=== PATIENT | female | born 1945 | race Caucasian/White ===

== ENCOUNTER → 2016-08-28 12:10 | Emergency (ER) | payer MEDICARE, OTHER ==
[~2016-08-28 12:10] MED LIST: ValACYclovir (*) 1 GM TAB PO ONE; predniSONE TAB* 20 MG PO ONE
[2016-08-28 13:31] LABS: Hematocrit 41 % (35-47); Hemoglobin 13.8 g/dl (12.0-16.0); Mean Corpuscular HGB Conc 34 g/dl (31-36); Mean Corpuscular Hemoglobin 32 pg (27-31); Mean Corpuscular Volume 94 fL (80-97); Mean Platelet Volume 8 um3 (7.4-10.4); Red Blood Count 4.35 10^6/ul (4.0-5.4); Red Cell Distribution Width 13 % (10.5-15); White Blood Count 12.7 10^3/ul (3.5-10.8)
--- NOTE | 2016-08-28 13:37 | RAD ---
HISTORY: Right facial weakness COMPARISONS: None TECHNIQUE: Multiple contiguous axial CT scans were obtained of the head without intravenous contrast. FINDINGS: HEMORRHAGE/INFARCT: There is no hemorrhage or acute infarct. MASSES/SHIFT: There is no mass or shift. EXTRA-AXIAL SPACES: There are no extra-axial fluid collections. SULCI AND VENTRICLES: The sulci and ventricles are normal in size and position for the patient's stated age. CEREBRUM: There is hypoattenuation of the periventricular and subcortical white matter. BRAINSTEM: There are no focal parenchymal abnormalities. CEREBELLUM: There are no focal parenchymal abnormalities. VESSELS: The vessels are grossly normal. PARANASAL SINUSES: The paranasal sinuses are clear. ORBITS: The orbits are unremarkable. BONES AND SOFT TISSUE: No bone or soft tissue abnormalities are noted. OTHER: None IMPRESSION: 1. NO ACUTE INTRACRANIAL PATHOLOGY. 2. PERIVENTRICULAR AND SUBCORTICAL HYPOATTENUATION, NONSPECIFIC BUT SUGGESTIVE OF CHRONIC SMALL VESSEL ISCHEMIA
[2016-08-28 13:41] LABS: Albumin 4.2 g/dL (3.2-5.2); BUN/Creatinine Ratio 21.7 (8-20); Calcium 10.3 mg/dL (8.6-10.3); EGFR African American 77.8 (>60); EGFR Non-African American 60.5 (>60); Globulin 3.5 g/dL (2-4); Potassium 3.9 mmol/L (3.5-5.0); Total Bilirubin 0.6 mg/dL (0.2-1.0); Total Protein 7.7 g/dL (6.4-8.9)
[2016-08-28 16:21] VITALS: BP 120/68
--- NOTE | 2016-08-28 18:51 | ED ---
Beverly Harris Auryana, scribed for Marlon Archuleta MD on 08/28/16 at 1246 . Neurological HPI - HPI Summary HPI Summary: 71 year old female presents to the ED for right-sided facial drooping starting this morning. Patient reports waking up with a "crooked smile" (still present) and is unable to close her right eye. She denies any difficulty walking, numbness, or weakness in the extremities. PMHx is significant for shingles. - History of Current Complaint Chief Complaint: EDNeurologicalDeficit Stated Complaint: DROOPING,TINGLY FACE Time Seen by Provider: 08/28/16 12:35 Last Known Well Date: Last night before bed Hx Obtained From: Patient Onset/Duration: Sudden Onset, Started hours ago, Still Present Timing: Constant Onset Severity: Moderate Current Severity: Moderate Neurological Deficit Location: Facial - Right-sided Pain Intensity: 5 Pain Scale Used: 0-10 Numeric Associated Signs and Symptoms: Negative: Unsteady Gait, Weakness - Allergy/Home Medications Allergies/Adverse Reactions: Allergies Allergy/AdvReac Type Severity Reaction Status Date / Time Penicillins Allergy Unknown Unknown Verified 09/13/12 17:04 Reaction Details BANDAIDS Allergy Severe Rash Uncoded 09/13/12 17:04 Home Medications: Home Medications Acetaminophen TAB* [Tylenol TAB*] 650 mg PO Q4H PRN 08/28/16 [History Confirmed 08/28/16] Letrozole (NF) [Femara (NF)] 2.5 mg PO DAILY 08/28/16 [History Confirmed ] Levothyroxine TAB* [Synthroid TAB*] 100 mcg PO DAILY 08/28/16 [History Confirmed 08/28/16] Lisinopril TAB* [Prinivil TAB*] 20 mg PO DAILY 08/28/16 [History Confirmed 08/28] Potassium Chlor TAB* [Klor Con ER TAB*] 10 meq PO DAILY 08/28/16 [History Confirmed 08/28/16] amLODIPine TAB* [Norvasc 5 mg TAB*] 10 mg PO DAILY 08/28/16 [History Confirmed 08/28/16] PMH/Surg Hx/FS Hx/Imm Hx Endocrine/Hematology History: Reports: Hx Thyroid Disease Denies: Hx Diabetes Cardiovascular History: Reports: Hx Hypertension, Other Cardiovascular Problems/ Disorders - MITRAL VALVE REFLUX Respiratory History: Denies: Hx Asthma, Hx Chronic Obstructive Pulmonary Disease (COPD) GI History: Denies: Hx Ulcer - Surgical History Surgery Procedure, Year, and Place: THYROIDECTOMY Infectious Disease History: Reports: Hx Shingles Denies: Hx Hepatitis, Hx Human Immunodeficiency Virus (HIV), Traveled Outside the [place] in Last 30 Days - Family History Known Family History: Positive: Hypertension, Diabetes, Other - cancer, CVA - Social History Substance Use Type: Reports: None Review of Systems Constitutional: Negative Negative: Fever Eyes: Negative ENT: Negative Cardiovascular: Negative Respiratory: Negative Gastrointestinal: Negative Genitourinary: Negative Musculoskeletal: Negative Positive: Other - no issues with gait/ambulation Skin: Negative Neurological: Other - right-sided facial drooping Negative: Weakness, Paresthesia, Numbness Psychological: Normal All Other Systems Reviewed And Are Negative: Yes Physical Exam - Summary Physical Exam Summary: VITAL SIGNS: Reviewed. GENERAL: Patient is a well-developed and nourished FEMALE who is lying comfortable in the stretcher. Patient is not in any acute respiratory distress. HEAD AND FACE: No signs of trauma. No ecchymosis, hematomas or skull depressions. No sinus tenderness. EYES: PERRLA, EOMI x 2, No injected conjunctiva, no nystagmus. EARS: Hearing grossly intact. Ear canals and tympanic membranes are within normal limits. MOUTH: Oropharynx within normal limits. NECK: Supple, trachea is midline, no adenopathy, no JVD, no carotid bruit, no c- spine tenderness, neck with full ROM. CHEST: Symmetric, no tenderness at palpation LUNGS: Clear to auscultation bilaterally. No wheezing or crackles. CVS: Regular rate and rhythm, S1 and S2 present, no murmurs or gallops appreciated. ABDOMEN: Soft, non-tender. No signs of distention. No rebound no guarding, and no masses palpated. Bowel sounds are normal. EXTREMITIES: FROM in all major joints, no edema, no cyanosis or clubbing. NEURO: Alert and oriented x 3. Speech is normal and follows commands. Decreased right-sided facial sensation and movement. Patient is unable to wrinkle right side of forehead but is able to wrinkle left side of forehead. SKIN: Dry and warm. Triage Information Reviewed: Yes Vital Signs On Initial Exam: Initial Vitals Temp Pulse Resp BP 98.2 F 81 20 132/74 08/28/16 12:15 08/28/16 12:15 08/28/16 12:15 08/28/16 12:15 Vital Signs Reviewed: Yes Diagnostics - Vital Signs Vital Signs Temp Pulse Resp BP 08/28/16 12:15 98.2 F 81 20 132/74 - Laboratory Lab Results: Lab Results 08/28/16 08/28/16 08/28/16 Range/Units 13:10 13:10 13:10 WBC 12.7 H (3.5-10.8) 10^3/ul RBC 4.35 (4.0-5.4) 10^6/ul Hgb 13.8 (12.0-16.0) g/dl Hct 41 (35-47) % MCV 94 (80-97) fL MCH 32 H (27-31) pg MCHC 34 (31-36) g/dl RDW 13 (10.5-15) % Plt Count 321 (150-450) 10^3/ul MPV 8 (7.4-10.4) um3 Neut % (Auto) 81.1 (38-83) % Lymph % (Auto) 10.1 L (25-47) % Rock % (Auto) 8.2 (1-9) % Eos % (Auto) 0.1 (0-6) % Baso % (Auto) 0.5 (0-2) % Absolute Neuts (auto) 10.3 H (1.5-7.7) 10^3/ul Absolute Lymphs (auto) 1.3 (1.0-4.8) 10^3/ul Absolute Monos (auto) 1.0 H (0-0.8) 10^3/ul Absolute Eos (auto) 0 (0-0.6) 10^3/ul Absolute Basos (auto) 0.1 (0-0.2) 10^3/ul Absolute Nucleated RBC 0.02 10^3/ul Nucleated RBC % 0.1 INR (Anticoag Therapy) 0.97 (0.89-1.11) Sodium 135 (133-145) mmol/L Potassium 3.9 (3.5-5.0) mmol/L Chloride 100 L (101-111) mmol/L Carbon Dioxide 26 (22-32) mmol/L Anion Gap 9 (2-11) mmol/L BUN 20 (6-24) mg/dL Creatinine 0.92 (0.51-0.95) mg/dL Est GFR ( Amer) 77.8 (>60) Est GFR (Non-Af Amer) 60.5 (>60) BUN/Creatinine Ratio 21.7 H (8-20) Glucose 95 (70-100) mg/dL Lactic Acid (0.5-2.0) mmol/L Calcium 10.3 (8.6-10.3) mg/dL Total Bilirubin 0.60 (0.2-1.0) mg/dL AST 24 (13-39) U/L ALT 30 (7-52) U/L Alkaline Phosphatase 95 (34-104) U/L Troponin I 0.00 (<0.04) ng/mL Total Protein 7.7 (6.4-8.9) g/dL Albumin 4.2 (3.2-5.2) g/dL Globulin 3.5 (2-4) g/dL Albumin/Globulin Ratio 1.2 (1-3) /14/17 Range/Units 13:10 WBC (3.5-10.8) 10^3/ul RBC (4.0-5.4) 10^6/ul Hgb (12.0-16.0) g/dl Hct (35-47) % MCV (80-97) fL MCH (27-31) pg MCHC (31-36) g/dl RDW (10.5-15) % Plt Count (150-450) 10^3/ul MPV (7.4-10.4) um3 Neut % (Auto) (38-83) % Lymph % (Auto) (25-47) % Rock % (Auto) (1-9) % Eos % (Auto) (0-6) % Baso % (Auto) (0-2) % Absolute Neuts (auto) (1.5-7.7) 10^3/ul Absolute Lymphs (auto) (1.0-4.8) 10^3/ul Absolute Monos (auto) (0-0.8) 10^3/ul Absolute Eos (auto) (0-0.6) 10^3/ul Absolute Basos (auto) (0-0.2) 10^3/ul Absolute Nucleated RBC 10^3/ul Nucleated RBC % INR (Anticoag Therapy) (0.89-1.11) Sodium (133-145) mmol/L Potassium (3.5-5.0) mmol/L Chloride (101-111) mmol/L Carbon Dioxide (22-32) mmol/L Anion Gap (2-11) mmol/L BUN (6-24) mg/dL Creatinine (0.51-0.95) mg/dL Est GFR ( Amer) (>60) Est GFR (Non-Af Amer) (>60) BUN/Creatinine Ratio (8-20) Glucose (70-100) mg/dL Lactic Acid 1.1 (0.5-2.0) mmol/L Calcium (8.6-10.3) mg/dL Total Bilirubin (0.2-1.0) mg/dL AST (13-39) U/L ALT (7-52) U/L Alkaline Phosphatase (34-104) U/L Troponin I (<0.04) ng/mL Total Protein (6.4-8.9) g/dL Albumin (3.2-5.2) g/dL Globulin (2-4) g/dL Albumin/Globulin Ratio (1-3) Result Diagrams: 08/28/16 13:10 08/28/16 13:10 Lab Statement: Any lab studies that have been ordered have been reviewed, and results considered in the medical decision making process. - CT CT brain CT Interpretation: Positive (See Comments) CT Interpretation Completed By: Radiologist - IMPRESSION: 1. NO ACUTE INTRACRANIAL PATHOLOGY. 2. PERIVENTRICULAR AND SUBCORTICAL HYPOATTENUATION, NONSPECIFIC BUT SUGGESTIVE OF CHRONIC SMALL VESSEL ISCHEMIA - EKG 13:52 EKG Interpretation: SINUS RHYTHM @ 72 bpm, without ST elevation Course/Dx - Course Assessment/Plan: 71 year old female presents to the ED for right-sided facial drooping starting this morning. Patient reports waking up with a "crooked smile " (still present) and is unable to close her right eye. She denies any difficulty walking, numbness, or weakness in the extremities. PMHx is significant for shingles. Test results show WBC 12.7. Head CT No acute intracranial pathology. 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 We sent a Lyme titer that the patient agrees to follow up with her PCP about. Patient is A&O x3 and is hemodynamically stable. I discussed all the findings and test results with the patient. Patient was instructed to return to the emergency room immediately if any of the symptoms return or worsens. Patient understands and agrees. Plan of care was discussed with the patient and patient understands and agrees with the plan of care. All questions were answered at patient satisfaction. There were no further complaints or concerns. Patient is alert and oriented x 3. Patient vital signs are stable. Patient is to follow up with primary care physician in the next 2 to 3 days. Patient understands and agrees. - Differential Dx Differential Diagnoses Neuro: Positive: Cerebrovascular Accident, Seizure Disorder, Transient Ischemic Attack - Diagnoses Provider Diagnoses: Bettencourt's palsy Discharge - Discharge Plan Condition: Stable Disposition: HOME Prescriptions: ValACYclovir (*) [Valtrex 1 GM(*)] 1 gm PO TID #21 tab predniSONE TAB* [Deltasone TAB*] 40 mg PO DAILY #8 tab Patient Education Materials: Bettencourt Palsy (ED) Referrals: Tracee Storm MD [Primary Care Provider] - 2 Days The documentation as recorded by the Beverly olvera Auryana accurately reflects the service I personally performed and the decisions made by , Marlon Archuleta MD.
[2016-08-31 13:52] LABS: Lyme Disease IgG Ab WB Negative (Negative)
== END | disposition home or self-care (01) ==
LOC: ED 12:10
DX: G51.0 Bell's palsy (principal)
CPT/HCPCS: 36415; 70450; 80053; 83605; 84484; 85025; 85610; 86617; 86618; 93005; 99283; A9270-GY; J7512